=== PATIENT | male | born 1990 | race Caucasian/White ===

== ENCOUNTER 2016-10-10 20:17 | Emergency (ER) | payer SELFPAY ==
[2016-10-10 21:04] VITALS: BP 140/83
--- NOTE | 2016-10-10 21:23 | UC ---
Complaint Male HPI - HPI Summary HPI Summary: 25 year old male with left sided testicular pain for 4-5 days. He has had previous right sided pain and had sonogram and CT scan last year and told he had a "cyst" Now at this time left side bothering him. He was at one time referred to Urology but never went . He has NO health insurance at this time and paying our of pocket. He denies new sexual partners, vigorous exercise, trauma to groin lately. Denies fever. Denies penile discharge. - History of Current Complaint Chief Complaint: UCGU Stated Complaint: PAIN LEFT TESTICLE Time Seen by Provider: 10/10/16 20:51 Hx Obtained From: Patient Onset/Duration: Gradual Onset Timing: Constant Severity Initially: Mild Severity Currently: Moderate Pain Intensity: 6 Pain Scale Used: 0-10 Numeric Location: Testicle Character: Constant Pressure Aggravating Factor(s): Nothing Alleviating Factor(s): Nothing Associated Signs And Symptoms: Positive: Nausea - Risk Factors Testicular Torsion: Negative - Allergies/Home Medications Allergies/Adverse Reactions: Allergies Allergy/AdvReac Type Severity Reaction Status Date / Time Bee Venom Allergy Severe Anaphylatic Verified 10/10/16 20:33 Shock Home Medications: Home Medications NK [No Home Medications Reported] 10/10/16 [History Confirmed 10/10/16] PMH/Surg Hx/FS Hx/Imm Hx Previously Healthy: Yes Endocrine History Of: Denies: Diabetes, Thyroid Disease, Hyperthyroidism, Hypothyroidism, Dyslipidemia Cardiovascular History Of: Denies: Cardiac Disorders, Hypertension, Pacemaker/ICD, Myocardial Infarction , Congestive Heart Failure, Atrial Fibrillation, Deep Vein Thrombosis, Bleeding Disorders Respiratory History Of: Denies: COPD, Asthma, Bronchitis, Pneumonia, Pulmonary Embolism GI/ History Of: Denies: Gastroesophageal Reflux, Ulcer, Gastrointestinal Bleed, Gall Bladder Disease, Kidney Stones, Diverticulitis, Renal Disease, Urosepsis Neurological History Of: Denies: TIA, CVA, Dementia, Seizures, Migraine Psychological History Of: Denies: Anxiety, Depression, Bipolar Disorder, Schizophrenia, Post Traumatic Stress Disorder Cancer History Of: Denies: Lung Cancer, Colorectal Cancer, Breast Cancer, Prostate Cancer, Cervical Cancer Other History Of: Negative For: HIV, Hepatitis B, Hepatitis C, Anticoagulant Therapy - Surgical History Surgical History: Yes Surgery Procedure, Year, and Place: appendectomy 2005 Other Surgical History: Has had right testicle cyst in the past. - Family History Known Family History: Positive: Diabetes - Social History Occupation: Employed Full-time - [employer] Lives: With Family Alcohol Use: None Substance Use Type: None Substance Use Comment - Amount & Last Used: has not smoked in 3-4 weeks Smoking Status (MU): Heavy Every Day Tobacco Smoker Type: Cigarettes Amount Used/How Often: 1/2 ppd Length of Time of Smoking/Using Tobacco: 10 years Review of Systems Constitutional: Negative Skin: Negative Eyes: Negative ENT: Negative Respiratory: Negative Cardiovascular: Negative Gastrointestinal: Negative Genitourinary: Other - left testicular pain Motor: Negative Neurovascular: Negative Musculoskeletal: Negative Neurological: Negative Psychological: Negative All Other Systems Reviewed And Are Negative: Yes Physical Exam Triage Information Reviewed: Yes Appearance: Well-Appearing, No Pain Distress, Well-Nourished Vital Signs: Initial Vital Signs Temp 98.6 F 10/10/16 20:29 Pulse 74 10/10/16 20:29 Resp 18 10/10/16 20:29 BP 140/83 10/10/16 20:29 Pulse Ox 99 10/10/16 20:29 Vital Signs Reviewed: Yes Eye Exam: Normal ENT Exam: Normal Respiratory Exam: Normal Cardiovascular Exam: Normal Abdominal Exam: Normal Abdomen Description: Positive: Nontender, Other: - left testicle with mild swelling and mild pain to palpation. right testicle normal. normal cremasteric reflex. no masses. no hernia. normal penis. circumcised. Musculoskeletal Exam: Normal Neurological Exam: Normal Psychological Exam: Normal Skin Exam: Normal Complaint Male Course/Dx - Course Course Of Treatment: Patient aware we have no sono at this time and he needs this. He declined going to hospital . He is aware this could lead to undiagnosed torsion leading losing testicle or later diagnosed testicular cancer. He and spouse are aware of this . They declined ED. They will return tomorrow AM to have sono but signed AMA at this time. It could be epididymitis but we needs sonogram at this time. HE never went to Uro and could use another referral but I advises he needs a new PCP. - Differential Dx/Diagnosis Differential Diagnosis/HQI/PQRI: Epididymitis, Cancer Provider Diagnoses: Left testicular pain Discharge - Discharge Plan Condition: Fair Disposition: AGAINST MEDICAL ADVICE Patient Education Materials: Testicle Pain (ED) Referrals: No Primary Care Phys,NOPCP [Primary Care Provider] - 3 Days Additional Instructions: You are advised to go to the Emergency room for further evaluation including sonogram/ultrasound. If you do not go tonight there could be consequences and a bad outcome as described in our conversation. We are open tomorrow and have ultrasound from 8am to 3 pm.
== END 2016-10-10 21:06 | disposition left against medical advice (07) ==
LOC: UCCORT 20:17
DX: N50.812 Left testicular pain (principal); R11.0 Nausea; F17.210 Nicotine dependence, cigarettes, uncomplicated
CPT/HCPCS: 99212; G0463

== ENCOUNTER 2016-10-11 09:52 | Emergency (ER) | payer SELFPAY ==
--- NOTE | 2016-10-11 10:45 | UC ---
Complaint Male HPI - HPI Summary HPI Summary: Seen yesterday for right testes pain and US could not be done. still has shahzad and it is now bilateral. No fever, no dysuria. No hematuria.Has Hx of right testicular cyst. No hx of kidney stone. No penile disch. - History of Current Complaint Chief Complaint: UCGU Stated Complaint: PERSONAL Time Seen by Provider: 10/11/16 09:56 Hx Obtained From: Patient Onset/Duration: Sudden Onset - lasting seconds, but comming every 1/2 hour. Timing: Intermittent, Lasting Seconds Severity Initially: Moderate Severity Currently: Moderate - bilateral now Pain Intensity: 5 Pain Scale Used: 0-10 Numeric - 5/10 Location: Testicle Character: Constant Pressure Aggravating Factor(s): Nothing Alleviating Factor(s): Nothing Associated Signs And Symptoms: Positive: Negative - No hx of trauma - Risk Factors Testicular Torsion: Negative - Allergies/Home Medications Allergies/Adverse Reactions: Allergies Allergy/AdvReac Type Severity Reaction Status Date / Time Bee Venom Allergy Severe Anaphylatic Verified 10/11/16 09:59 Shock PMH/Surg Hx/FS Hx/Imm Hx Previously Healthy: Yes Endocrine History Of: Denies: Diabetes, Thyroid Disease, Hyperthyroidism, Hypothyroidism, Dyslipidemia Cardiovascular History Of: Denies: Cardiac Disorders, Hypertension, Pacemaker/ICD, Myocardial Infarction , Congestive Heart Failure, Atrial Fibrillation, Deep Vein Thrombosis, Bleeding Disorders Respiratory History Of: Denies: COPD, Asthma, Bronchitis, Pneumonia, Pulmonary Embolism GI/ History Of: Denies: Gastroesophageal Reflux, Ulcer, Gastrointestinal Bleed, Gall Bladder Disease, Kidney Stones, Diverticulitis, Renal Disease, Urosepsis Neurological History Of: Denies: TIA, CVA, Dementia, Seizures, Migraine Psychological History Of: Denies: Anxiety, Depression, Bipolar Disorder, Schizophrenia, Post Traumatic Stress Disorder Cancer History Of: Denies: Lung Cancer, Colorectal Cancer, Breast Cancer, Prostate Cancer, Cervical Cancer Other History Of: Negative For: HIV, Hepatitis B, Hepatitis C, Anticoagulant Therapy - Surgical History Surgical History: Yes Surgery Procedure, Year, and Place: appendectomy 2006 Other Surgical History: Has had right testicle cyst in the past. - Family History Known Family History: Positive: Diabetes - Social History Lives: With Family Alcohol Use: None Substance Use Type: None Substance Use Comment - Amount & Last Used: has not smoked in 3-4 weeks Smoking Status (MU): Heavy Every Day Tobacco Smoker Type: Cigarettes Amount Used/How Often: 1/2 ppd Length of Time of Smoking/Using Tobacco: 10 years Review of Systems Constitutional: Negative Skin: Negative Eyes: Negative ENT: Negative Respiratory: Negative Cardiovascular: Negative Gastrointestinal: Negative Genitourinary: Other - testicular pain Motor: Negative Neurovascular: Negative Musculoskeletal: Negative Neurological: Headache - Headaches are not new. Psychological: Negative All Other Systems Reviewed And Are Negative: Yes Physical Exam Triage Information Reviewed: Yes Appearance: Well-Appearing, Well-Nourished Vital Signs: Initial Vital Signs Temp 98.1 F 10/11/16 09:59 Pulse 64 10/11/16 09:59 Resp 18 10/11/16 09:59 BP 136/79 10/11/16 09:59 Pulse Ox 100 10/11/16 09:59 Vital Signs Reviewed: Yes Eye Exam: Normal ENT Exam: Normal ENT: Positive: Hearing grossly normal, Pharynx normal Dental Exam: Normal Neck: Positive: Supple, Nontender, No Lymphadenopathy Respiratory: Positive: Lungs clear, Normal breath sounds, No respiratory distress Cardiovascular: Positive: RRR, No Murmur, Pulses Normal Abdomen Description: Positive: Nontender, No Organomegaly, Soft, Other: - No hernias elicited. No discoloration, no obvious swelling of testes. No tenderness to testes or penis. No penile discharge. No lesions. Bowel Sounds: Positive: Present Musculoskeletal Exam: Normal Musculoskeletal: Positive: Strength Intact Neurological: Positive: Alert, Muscle Tone Normal Psychological Exam: Normal Skin Exam: Normal Complaint Male Course/Dx - Differential Dx/Diagnosis Differential Diagnosis/HQI/PQRI: Other - epidydimitis Provider Diagnoses: epididymitis Discharge - Discharge Plan Condition: Stable Disposition: HOME Prescriptions: Sulfamethox/Trimethoprim DS* [Bactrim DS 800/160 TAB*] 1 tab PO BID #20 tab Referrals: No Primary Care Phys,NOPCP [Primary Care Provider] - Additional Instructions: Your ultrasound is normal, except for one cyst on either testicle. You may have an infection in epidydimus, so start taking the Bactrim 2 times a day and use Aleve or ibuprofen as directed on bottle, for pain. Avoid lifting over 30 lbs. Wear tight , supportive underwear.. Follow up with urology vel[facility].
--- NOTE | 2016-10-11 11:10 | RAD ---
HISTORY: Bilateral testicular pain COMPARISONS: None TECHNIQUE: Multiple transverse and longitudinal ultrasound images were obtained of the scrotum, using grayscale, color Doppler, and spectral Doppler imaging. FINDINGS: RIGHT: RIGHT TESTICLE: The right testicle measures 4.8 x 2.3 x 2.9 cm. The right testicle is homogeneous in echotexture, without testicular parenchymal mass. Normal arterial and venous waveforms are identified within the right testicle on spectral Doppler imaging. RIGHT EPIDIDYMIS: The right epididymis measures 1.1 cm at the head. 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 RIGHT SCROTUM: There is a trace right hydrocele. LEFT: LEFT TESTICLE: The left testicle measures 4.5 x 2.5 x 2.7 cm. The left testicle is homogeneous in echotexture, without testicular parenchymal mass. Normal arterial and venous waveforms are identified within the left testicle on spectral Doppler imaging. LEFT EPIDIDYMIS: The left epididymis measures 1 cm at the head. LEFT SCROTUM: There is a trace left hydrocele OTHER: None IMPRESSION: 1. NO TESTICULAR PARENCHYMAL MASS. 2. NO SONOGRAPHIC FEATURES OF TORSION. PLEASE NOTE THAT PARTIAL OR INTERMITTENT TORSION MAY BE SONOGRAPHICALLY NORMAL. 3. TRACE BILATERAL HYDROCELES
[2016-10-11 13:54] VITALS: BP 136/76
== END 2016-10-11 13:54 | disposition home or self-care (01) ==
LOC: UCCORT 09:52
DX: N45.1 Epididymitis (principal); F17.210 Nicotine dependence, cigarettes, uncomplicated; N43.3 Hydrocele, unspecified
CPT/HCPCS: 76870; 81003; 87491; 87591; 99212; G0463

== ENCOUNTER 2017-01-25 20:27 | Emergency (ER) | payer BC ==
[2017-01-25 20:37] VITALS: BP 136/89
[2017-01-25] MEDS ORDERED: DOXYcycline CAP(*) 100 MG PO ONE (20:53)
--- NOTE | 2017-01-25 21:02 | UC ---
Skin Complaint HPI - HPI Summary HPI Summary: RIGHT SHOULDER TICK BITE ONE WEEK AGO. TICK REMOVED, NOT EMBEDDED. FAINT LIGHT BROWN AREA WHERE TICK BIT. NO FEVER. NO MUSCLE OR JOINT PAIN. NO ABDOMINAL PAIN. - History of Current Complaint Chief Complaint: UCSkin Time Seen by Provider: 01/25/17 20:29 Stated Complaint: TICK BITE Hx Obtained From: Patient Onset/Duration: Gradual Onset, Lasting Weeks, Still Present Skin Exposure Onset/Duration: Days Ago Onset Severity: Mild Current Severity: Mild Location: Discrete - RIGHT SHOULDER Aggravating: Nothing Alleviating: Nothing Associated Signs & Symptoms: Positive: Negative Related History: Insect Bite/Sting, Possible Reaction to: Insect - Allergy/Home Medications Allergies/Adverse Reactions: Allergies Allergy/AdvReac Type Severity Reaction Status Date / Time Bee Venom Allergy Severe Anaphylatic Verified 01/25/17 20:36 Shock Home Medications: Home Medications Acetaminop/Codeine 30 MG TAB* [Tylenol/Codeine 30 MG TAB*] 1 tab PO Q6H PRN [History Confirmed 01/25/17] Penicillin VK TAB* [Penicillin VK 250 mg Tab*] 500 mg PO QID 01/25/17 [History Confirmed 01/25/17] Review of Systems Constitutional: Negative Skin: Rash - 0.5 X 0.5 CM IRREGULAR FAINT BROWN MACULAR RASH ON RIGHT SHOUDLER, CORRESPONDING TO TICK BITE ONE WEEK AGO Eyes: Negative ENT: Negative Respiratory: Negative Cardiovascular: Negative Gastrointestinal: Negative Genitourinary: Negative Motor: Negative Neurovascular: Negative Musculoskeletal: Negative Neurological: Negative Psychological: Negative All Other Systems Reviewed And Are Negative: Yes PMH/Surg Hx/FS Hx/Imm Hx Previously Healthy: Yes Other History Of: Negative For: HIV, Hepatitis B, Hepatitis C, Anticoagulant Therapy - Surgical History Surgical History: Yes Surgery Procedure, Year, and Place: appendectomy 2005. tooth extraction Other Surgical History: Has had right testicle cyst in the past. - Family History Known Family History: Positive: Diabetes - Social History Occupation: Employed Full-time Lives: With Family Alcohol Use: None Substance Use Type: None Substance Use Comment - Amount & Last Used: has not smoked in 3-4 weeks Smoking Status (MU): Heavy Every Day Tobacco Smoker Type: Cigarettes Amount Used/How Often: 1/2 ppd Length of Time of Smoking/Using Tobacco: 10 years Physical Exam Triage Information Reviewed: Yes Appearance: Well-Appearing, No Pain Distress, Well-Nourished Vital Signs: Initial Vital Signs Temp 97.8 F 01/25/17 20:32 Pulse 100 01/25/17 20:32 Resp 16 01/25/17 20:32 BP 136/89 01/25/17 20:32 Pulse Ox 100 01/25/17 20:32 Vital Signs Reviewed: Yes Eye Exam: Normal ENT Exam: Normal ENT: Positive: Normal ENT inspection Dental Exam: Normal Neck exam: Normal Neck: Positive: Supple, Nontender, No Lymphadenopathy Respiratory Exam: Normal Respiratory: Positive: Chest non-tender, Lungs clear, Normal breath sounds, No respiratory distress, No accessory muscle use Cardiovascular Exam: Normal Cardiovascular: Positive: RRR, No Murmur, Pulses Normal Abdominal Exam: Normal Musculoskeletal Exam: Normal Musculoskeletal: Positive: Strength Intact, ROM Intact Neurological Exam: Normal Psychological Exam: Normal Skin: Positive: rashes - 0.5 X 0.5 CM IRREGULAR FAINT BROWN MACULAR RASH ON RIGHT SHOUDLER, CORRESPONDING TO TICK BITE ONE WEEK AGO Course/Dx - Differential Diagnoses - Skin Complaint Differential Diagnoses: Cellulitis, Contact Dermatitis, Impetigo, Poison Lizzette - Diagnoses Provider Diagnoses: RIGHT SHOULDER TICK BITE PROPHYLAXIS Discharge - Discharge Plan Condition: Stable Disposition: HOME Patient Education Materials: Tick Bite (ED) Referrals: [facility] PHYSICIAN REFERRAL [Outside] No Primary Care Phys,NOPCP [Primary Care Provider] -
== END 2017-01-25 21:05 | disposition home or self-care (01) ==
LOC: UCCORT 20:27
DX: S40.261A Insect bite (nonvenomous) of right shoulder, initial encounter (principal); W57.XXXA Bitten or stung by nonvenomous insect and other nonvenomous arthropods, initial encounter; Y93.9 Activity, unspecified; Y92.9 Unspecified place or not applicable; R21 Rash and other nonspecific skin eruption; Z91.030 Bee allergy status; Z72.0 Tobacco use
CPT/HCPCS: 99212; A9270-GY; G0463